=== PATIENT | female | born 1995 | race Caucasian/White ===

== ENCOUNTER → 2016-10-30 | Outpatient (CLI) | payer MEDICAID | END | disposition home or self-care (01) | LOC: RAD.S 12:22 | DX: Z34.03 Encounter for supervision of normal first pregnancy, third trimester (principal); Z3A.30 30 weeks gestation of pregnancy ==

== ENCOUNTER 2016-11-13 08:30 | Outpatient (CLI) | payer MEDICAID | END 2016-11-13 10:36 | disposition home or self-care (01) | LOC: BC 08:30 → 2LDRP 08:30 → BC 10:36 | DX: O99.89 Other specified diseases and conditions complicating pregnancy, childbirth and the puerperium (principal); M79.606 Pain in leg, unspecified; Z3A.32 32 weeks gestation of pregnancy ==